=== PATIENT | male | born 1990 ===

== ENCOUNTER 2022-02-24 01:34 | Emergency (ER) | payer OTHER | END 2022-02-24 05:15 | disposition home or self-care (01) | LOC: ER 01:34 | DX: S01.81XA Laceration without foreign body of other part of head, initial encounter (principal); X58.XXXA Exposure to other specified factors, initial encounter; Y93.89 Activity, other specified; Y92.89 Other specified places as the place of occurrence of the external cause; Y99.8 Other external cause status ==

== ENCOUNTER → 2022-03-05 | Emergency (ER) | payer OTHER ==
[~2022-03-05] VITALS: Ht 177.8 cm; Wt 72.6 kg
== END | disposition home or self-care (01) ==
LOC: ER 15:19
DX: Z48.02 Encounter for removal of sutures (principal)